=== PATIENT | female | born 1955 ===

== ENCOUNTER 2020-05-02 09:59 | Outpatient (CLI) | payer OTHER | END 2020-05-02 10:01 | disposition home or self-care (01) | LOC: PPH VACUNA 09:59 | PROVIDERS: ATTEND Emergency Medicine Pediatric Emergency Medicine | DX: Z23 Encounter for immunization (principal) ==

== ENCOUNTER → 2020-05-23 08:00 | Outpatient (CLI) | payer OTHER | END | disposition home or self-care (01) | LOC: PPH VACUNA 08:00 | PROVIDERS: ATTEND Emergency Medicine Pediatric Emergency Medicine | DX: Z23 Encounter for immunization (principal) ==